=== PATIENT | female | born 1965 | race Caucasian/White ===

== ENCOUNTER 2022-05-15 22:39 | Emergency (ER) | payer BC ==
[2022-05-15 23:13] LABS: #Basophils 0.1 thou/uL (0.0-0.2); #Eosinphils 0.5 thou/uL (0.0-0.7); #Lymphocytes 1.3 thou/uL (1.20-3.40); #Monocytes 0.5 thou/uL (0.11-0.59); #Neutrophils 2.5 thou/uL (1.40-6.50); %Basophils 1.6 % (0.0-1.0); %Eosinophils 9.6 % (0.0-10.0); %Lymphocytes 27.4 % (21.0-51.0); %Monocytes 9.5 % (0.0-10.0); %Neutrophils 51.8 % (42.0-75.0); Hemoglobin 11.9 g/dL (12.0-16.0); Mean Corpuscular HGB CONC 33.3 g/dL (32.0-36.0); Mean Corpuscular Hemoglobin 31.5 pg (27.0-31.0); Mean Corpuscular Volume 94.4 fL (78.0-98.0); Mean Platelet Volume 9.1 fL (7.4-10.4); Platelet Count 216 thou/uL (130-400); RBC Distribution Width 11.5 % (11.5-14.5); Red Blood Cell (RBC) Count 3.79 mill/uL (4.20-5.40); White Blood Cell (WBC) Count 4.8 thou/uL (4.8-10.8)
[2022-05-15 23:33] LABS: INR-International Normal Ratio 0.9; Prothrombin Time 12.7 sec (12.0-14.7)
[2022-05-15 23:34] LABS: ALT (SGPT) 15 U/L (8-55); AST (SGOT) 15 U/L (5-34); Alkaline Phosphatase 46 U/L (40-110); Anion Gap 12 mmol/L (10-20); BUN (Urea Nitrogen) 23 mg/dL (9.8-20.1); Bilirubin, Total 0.8 mg/dL (0.2-1.2); Calc. Creatinine Clearance 0 mL/min (70-130); Calcium 9.3 mg/dL (7.8-10.44); Carbon Dioxide 25 mmol/L (22-29); Chloride 107 mmol/L (98-107); Estimated GFR 87; Globulin 2.2 g/dL (2.4-3.5); Glucose 91 mg/dL (70-105); PTT 24.8 sec (22.9-36.1); Potassium 3.8 mmol/L (3.5-5.1); Protein, Total 6.2 g/dL (6.0-8.3); Sodium 140 mmol/L (136-145)
[2022-05-16] MEDS ORDERED: diphenhydrAMINE 25 MG CAP ONE (01:00)
[2022-05-16] MEDS ORDERED: Acetaminophen 500 MG TAB ONE (01:00)
[2022-05-16 02:34] LABS: #Eosinphils 0.4 thou/uL (0.0-0.7); #Lymphocytes 1.2 thou/uL (1.20-3.40); #Monocytes 0.3 thou/uL (0.11-0.59); #Neutrophils 1.7 thou/uL (1.40-6.50); %Basophils 1.3 % (0.0-1.0); %Lymphocytes 31.2 % (21.0-51.0); %Neutrophils 46.5 % (42.0-75.0); Hemoglobin 11.3 g/dL (12.0-16.0); Mean Corpuscular HGB CONC 32.9 g/dL (32.0-36.0); Mean Corpuscular Hemoglobin 31.2 pg (27.0-31.0); Mean Corpuscular Volume 94.7 fL (78.0-98.0); Platelet Count 190 thou/uL (130-400); RBC Distribution Width 11.7 % (11.5-14.5); Red Blood Cell (RBC) Count 3.63 mill/uL (4.20-5.40); White Blood Cell (WBC) Count 3.7 thou/uL (4.8-10.8)
[2022-05-16 02:50] LABS: Prothrombin Time 12.8 sec (12.0-14.7)
[2022-05-16 02:51] LABS: PTT 24.7 sec (22.9-36.1)
[2022-05-16 02:52] LABS: Anion Gap 12 mmol/L (10-20); BUN (Urea Nitrogen) 19 mg/dL (9.8-20.1); Calc. Creatinine Clearance 0 mL/min (70-130); Carbon Dioxide 25 mmol/L (22-29); Chloride 109 mmol/L (98-107); Estimated GFR 98; Glucose 91 mg/dL (70-105); Potassium 3.8 mmol/L (3.5-5.1); Sodium 142 mmol/L (136-145)
[2022-05-16] MEDS ORDERED: HYDROcodone/Acetaminophen 5/325 mg Tablet ONE (03:23)
== END 2022-05-16 03:35 | disposition home or self-care (01) ==
LOC: MADERS 22:39
DX: T63.061A Toxic effect of venom of other North and South American snake, accidental (unintentional), initial encounter (principal); M79.89 Other specified soft tissue disorders; Y92.096 Garden or yard of other non-institutional residence as the place of occurrence of the external cause; M25.571 Pain in right ankle and joints of right foot
CPT/HCPCS: 80048; 80053; 85025; 85384; 85610; 85730; 93005